=== PATIENT | male | born 1970 | race Caucasian/White ===

== ENCOUNTER 2017-05-31 08:56 | Emergency (ER) | payer OTHER ==
[2017-05-31 09:08] VITALS: BP 167/74
[2017-05-31] MEDS ORDERED: Lidocaine 1% 5ml(IM or SUTURE)(PAIN CLINIC) ONE (09:12)
--- NOTE | 2017-05-31 09:13 | ED Physician Documentation ---
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 denies: headache, fainting, dizziness - PAST HX Past History: none Surgeries/Procedures: other (hernia) Immunizations: denies: UTD Allergies/Adverse Reactions: Allergies Allergy/AdvReac Type Severity Reaction Status Date / Time No Known Drug Allergies Allergy Verified 05/31/17 09:08 Home Medications: Ambulatory Orders Medication Instructions Recorded NK [NK] 05/31/17 - SOCIAL HX Smoking History: greater than 1 pack/day Alcohol Use: none Drug Use: none - FAMILY HX Family History: No - VITAL SIGNS Vital Signs: Vital Signs Temp Pulse Resp BP Pulse Ox 73 18 167/74 97 05/31/17 08:56 05/31/17 08:56 05/31/17 08:56 05/31/17 08:56 - REVIEWED ASSESSMENTS Nursing Assessment Reviewed: Yes Vitals Reviewed: Yes Procedures Wound Location: upper extremity (rt 5th fingermed aspect 3cm flap lac apex proximal) Wound's Depth, Shape: superficial, flap Wound Explored: no foreign body removed Anesthesia: 1% Lidocaine Wound Repaired With: sutures Suture Size/Type: 4:0 (5 sutures) Layer Closure?: No Deep Layer Suture Size/Type: 4:0 Sterile Dressing Applied?: Yes Splint Applied?: No Sling Applied?: No ED Results Lab/Radiology - Orders Orders: ED Orders Category Date Time Status Diph,Pertuss(Acell),Tet Vac/Pf [Adacel] Med 05/31/17 09:03 Discontinued 0.5 ml IM .ONCE ONE Lidocaine 1% 5ml(IM or SUTURE) [Xylocaine] Med 05/31/17 09:12 Discontinued 50 mg .ROUTE .STK-MED ONE General Adult Physical Exam - PHYSICAL EXAM GENERAL APPEARANCE: mild distress EENT: eye inspection normal NECK: normal inspection. No: lymphadenopathy RESPIRATORY: no resp distress, breath sounds normal CVS: reg rate & rhythm ABDOMEN: soft, non-tender SKIN: warm/dry, normal color. No: diaphoresis, jaundice EXTREMITIES: non-tender (excpt as w/ cc) NEURO: oriented X3, motor nml, sensation nml, mood/affect nml Discharge Clincal Impression: 3cm lac rt 5th finger Referrals: Primary Doctor,No [Primary Care Provider] - 2 Days Comments: meds keep sutures clean dry chg dressing prn obs for pus red streaks sut out 6- 7 days Condition: Good Disposition: 01 HOME, SELF-CARE Decision to Admit: NO Decision Time: 09:53
[2017-05-31] MEDS: DIPH,PERTUSS(ACELL),TET VAC/PF 0.5 ML DISP.SYRIN IM ONE (09:48)
== END 2017-05-31 10:02 | disposition home or self-care (01) ==
LOC: ED 08:56
DX: S61.216A Laceration without foreign body of right little finger without damage to nail, initial encounter (principal); X58.XXXA Exposure to other specified factors, initial encounter; Y93.9 Activity, unspecified; Y99.9 Unspecified external cause status
CPT/HCPCS: 12002; 90471; 90715; 99283